=== PATIENT | female | born 1985 | race Caucasian/White ===

== ENCOUNTER 2023-10-02 08:21 | Outpatient (CLI) | payer BC, SELFPAY ==
[2023-10-16 12:24] VITALS: BMI 40.1
--- NOTE | 2023-10-16 12:24 | WPDHOMESLEEP ---
Sleep Study - Home Unattended Date of Study: 10/02/23 Ordering Provider: Abdiel Sutart DO Interpreting Provider: Elizabeth Tang, DO Home Sleep Study Type: Watch PAT Height: 1.6 m Weight: 102.965 kg Body Mass Index: 40.1 Neck Circumference (inches): 14.5 [place]: 7 Reason for Sleep Study Unrefreshing sleep Sleep History The patient is a 37-year-old female that had a sleep study ordered by her primary care physician for unrefreshing sleep.? The patient occasionally awakens from sleep short of breath.? She denies awakening at night with heartburn, belching or cough.? She constantly snores loudly enough that others complain.? She constantly has trouble sleeping when she has a cold.? She occasionally wakes up gasping for air throughout the night.? She occasionally has breathing problems at night observed by herself or others.? He denies sweating excessively at night.? She denies having heart palpitations or irregular heartbeats during the night.? She occasionally falls asleep during the day but never while driving.? She denies sleep paralysis and cataplexy.? She rarely has trouble at school or work due to sleepiness.? She rarely experiences vivid dreamlike scenes upon awakening or falling asleep.? She denies feeling afraid of going to sleep.? She rarely has nightmares.? She rarely remembers her dreams.? She rarely has thoughts racing through her mind.? She denies feeling sad or depressed.? She rarely has anxiety.? She denies having muscular tension.? She denies noticing parts of her body jerk.? She denies kicking during the night.? She denies having crawling and aching feelings in her legs and denies having leg pain during the night.? She rarely grinds her teeth during sleep but never awakens with morning jaw pain.? She denies being bothered by pain during the day and denies being awakened by pain during the night.? She rarely wakes up feeling stiff in the morning.? She occasionally wakes up with sore or achy muscles.? She occasionally wakes up with pain in the neck, spine and other joints.? She goes to bed at 10:30 p.m. on weekdays and at 10:00 p.m. on the weekends.? It takes her 15-30 minutes to fall asleep.? She wakes up a minimum of 2 times throughout the night for unknown reasons but she is able to fall back asleep immediately.? She wakes up at 6:00 a.m. on weekdays and at 7:00 a.m. on the weekends.? She typically gets 7 8 hours of sleep per night.? She will stay in bed for 30-60 minutes after waking up in morning.? She currently lives alone.? She denies consuming any caffeinated beverages within 2 hours of bedtime.? She denies engaging in physical exercise before bedtime.? She will read and watch television before falling asleep.? She denies taking naps in afternoon or the evening.? She consumes 1 caffeinated beverage per day.? She denies tobacco, alcohol and recreational drug use. [facility] Family History Family History Father Patient's father is Acute myocardial infarction Sibling Breast cancer Social History Social History Smoking status: Never smoker Second hand tobacco smoke exposure: No Alcohol intake: never Lack of Transportation: No Lack of Food: Never True Current Housing: I Have Housing Concerned About Future Housing: No Difficulty Paying Gas/Electric Bills: No Difficulty Paying for Meds: No Currently Unemployed: No Education: Bachelor's Degree Difficulty w/ Childcare or Family Care: No Medications Home Medications Medication Instructions Recorded Confirmed Type drospirenone (contraceptive) 4 mg 4 mg PO DAILY 02/08/21 09/12/23 History (28) tablet (Slynd) fluticasone propionate 50 2 spray intranasal DAILY PRN nasal 01/06/23 09/12/23 Rx mcg/actuation nasal congestion #15.8 mL spray,suspension montelukast 10 mg tablet 10 mg PO DAILY #90 tabs 07/03/23 05
== END 2023-10-03 08:59 | disposition home or self-care (01) ==
LOC: ANHCSM 08:22
PROVIDERS: PCP Internal Medicine; Visit Provider Internal Medicine
DX: G47.30 Sleep apnea, unspecified (principal); R06.83 Snoring; G47.33 Obstructive sleep apnea (adult) (pediatric)
CPT/HCPCS: 95800

== ENCOUNTER 2023-11-22 10:53 | Emergency (ER) | payer BC, SELFPAY ==
[2023-11-22 11:00] VITALS: BP 114/82; PULSE 66; RESP 16; TEMP 36.8; O2SAT 99
--- NOTE | 2023-11-22 11:07 | ED.SKABFB ---
HPI - Skin/Abscess/Foreign Bdy General Chief complaint: Skin/Abscess/Foreign Body Stated complaint: RASH Time Seen by Provider: 11/22/23 11:08 Source: patient and RN notes reviewed Mode of arrival: ambulatory Limitations: no limitations History of Present Illness HPI narrative: 37-year-old female presents with multiple complaints. She reports she was exposed to poison unique 11 days ago, she left for vacation 10 days ago and she began getting a rash while she was in [place]. She reports that worsened throughout her vacation and she developed blisters. Reports she has been using calamine lotion and has been putting dressings on the blisters. She denies oral mucosal involvement. She reports she has washed with soap water. She denies any swollen lips, swollen tongue. She also reports that her got COVID and she was exposed to that. Reports she has been having allergy symptoms, runny nose, stuffy nose, occasional cough and sore throat. She denies fever, body aches, chills, sweats. MD complaint: rash Related Data Home Medications Medication Instructions Recorded Confirmed drospirenone (contraceptive) 4 mg 4 mg PO DAILY 02/08/21 11/22/23 (28) tablet (Slynd) Allergies Allergy/AdvReac Type Severity Reaction Status Date / Time Penicillins Allergy Intermediate Hives Verified 11/22/23 11:08 Review of Systems Review of Systems: CONSTITUTIONAL: Denies malaise, chills, sweats, or fever. EYES: Denies redness, or discharge. ENT: Reports rhinorrhea, congestion. Denies swollen lips, swollen tongue CARDIOVASCULAR: Denies chest pain, palpitations, or edema. RESPIRATORY: Reports occasional cough. Denies dyspnea. GASTROINTESTINAL: Denies abdominal pain, nausea, vomiting SKIN: Reports rash with blisters on bilateral arms, legs MUSCULOSKELETAL: Denies joint pain or myalgia. NEUROLOGIC: Denies headache. All systems reviewed & are unremarkable except as noted in HPI and below PMFSH Family History Family History Father Patient's father is Acute myocardial infarction Sibling Breast cancer Social History Social History Smoking status: Never smoker Second hand tobacco smoke exposure: No Alcohol intake: never Lack of Transportation: No Lack of Food: Never True Current Housing: I Have Housing Concerned About Future Housing: No Difficulty Paying Gas/Electric Bills: No Difficulty Paying for Meds: No Currently Unemployed: No Education: Bachelor's Degree Difficulty w/ Childcare or Family Care: No Comments At time of signature, agree with nursing past medical, surgical, social and family history. There is no relevant family history pertinent to the presenting complaint Exam Narrative: GENERAL: Well-appearing, well-nourished, and in no acute distress. HEAD: Normocephalic, atraumatic. EYES: PERRLA, conjunctivae clear, and EOMI. ENT: Mucous membranes moist. Oropharynx without edema, erythema or lesions. NECK: Supple. No lymphadenopathy CHEST: Clear to auscultation. No respiratory distress. HEART: Regular rate and rhythm. SKIN: Warm, dry. Clusters of erythematous papules and vesicles, intact and disrupted blisters noted to the right arm NEURO: Alert and oriented x3. PSYCH: Normal mood and affect Course Course Emergency Course: Patient is aware of diagnosis, understands and agrees to treatment plan. Anticipatory guidance given. Patient agrees to follow-up as directed and is aware of reasons to seek care at the emergency department. Portions of this record may have been created with voice recognition software Level of Care: Express Care Visit Vital Signs Vital signs: Vital Signs Temperature 98.3 F 11/22/23 11:00 Pulse Rate 66 11/22/23 11:00 Respiratory Rate 16 11/22/23 11:00 Blood Pressure 114/82 11/22/23 11:00 Pulse Oximetry 99 11/21
[2023-11-22] MEDS: methylPREDNISolone SOD SUCC 125 MG VIAL IM (11:20)
== END 2023-11-22 11:30 | disposition home or self-care (01) ==
PROVIDERS: Emergency Provider Nurse Practitioner; PCP Internal Medicine
DX: L25.9 Unspecified contact dermatitis, unspecified cause (principal); S40.821A Blister (nonthermal) of right upper arm, initial encounter; X58.XXXA Exposure to other specified factors, initial encounter; Z20.822 Contact with and (suspected) exposure to COVID-19
CPT/HCPCS: 87426; 96372; 99213; G0463; J2919

== ENCOUNTER 2024-01-12 15:05 | Outpatient (CLI) | payer BC, SELFPAY ==
--- NOTE | ~2024-01-12 | MM_ITS ---
EXAMINATION: MM screening jc BI w theodore HISTORY: Screening mammogram, family history of breast cancer in her half-sister. TECHNIQUE: Craniocaudal and mediolateral oblique 3-D tomosynthesis images were obtained and synthetic 2-D images were generated. CAD analysis was submitted and interpreted. COMPARISON: No prior mammogram is available for comparison at this institution. BREAST PARENCHYMAL COMPOSITION:Dense: The breasts are heterogeneously dense, which may obscure small masses. FINDINGS: There is a 1.8 cm low-density, obscured mass at the inner, slightly lower subareolar left b reast. No parenchymal abnormality the right breast evident. No suspicious microcalcifications in eith er breast. IMPRESSION: 1.8 cm obscured mass at the inner, slightly lower subareolar left breast. Spot compression views and ultrasound are recommended for further evaluation. BI-RADS Category 0: Incomplete: Needs additional imaging evaluation. Reviewed, dictated and finalized at [facility].
== END 2024-01-12 15:06 | disposition home or self-care (01) ==
LOC: ANHIMG 15:07
PROVIDERS: PCP Internal Medicine; Visit Provider Internal Medicine
DX: Z12.31 Encounter for screening mammogram for malignant neoplasm of breast (principal); R92.8 Other abnormal and inconclusive findings on diagnostic imaging of breast
CPT/HCPCS: 77063; 77067

== ENCOUNTER 2024-01-29 10:46 | Outpatient (CLI) | payer BC, SELFPAY ==
--- NOTE | ~2024-01-29 | MMUS_ITS ---
EXAMINATION: MM diagnostic jc LT w theodore, US breast LT limited HISTORY: Left breast mass seen on prior examination. TECHNIQUE: Additional 3-D tomosynthesis images of the left breast were performed and synthetic 2-D im ages were generated. CAD analysis was submitted and interpreted. High resolution Limited left breast ultrasound was performed. COMPARISON: 01/12/2024 BREAST PARENCHYMAL COMPOSITION: Dense: The breasts are heterogeneously dense, which may obscure small masses FINDINGS: MAMMOGRAPHIC FINDINGS: There is a subareolar mass of the left breast which is obscured by overlying fibroglandular tissue. T here are 2 cyst associated coarse calcifications. Mass measures approximately 2.3 cm on mammography. ULTRASOUND: Limited left breast ultrasound: At 12:00, 4 cm from the nipple there is an oval parallel oriented hyp oechoic mass without significant posterior features or internal vascularity measuring 1.6 x 1.2 x 0.5 cm. At 12:00, 1 cm from the nipple there is an oval slightly irregular shaped hypoechoic mass with m ixed posterior attenuation and no internal vascularity measuring 1.8 x 1.8 x 1.2 cm. Near the nipple at 2:00 there is a 7 mm oval hypoechoic mass with slightly irregular margins measuring 7 x 6 x 3 mm. IMPRESSION: 1. Multiple abnormal left breast masses, largest dominant mass at 12:00, 1 cm from the nipple measuri ng 1.8 cm, corresponding to the mammographic finding. 2. Recommend ultrasound-guided biopsy of dominant mass measuring 1.8 cm. BI-RADS category 4, suspicious findings. Reviewed, dictated and finalized at location [facility]. IMPRESSION: 1. Multiple abnormal left breast masses, largest dominant mass at 12:00, 1 cm f rom the nipple measuring 1.8 cm, corresponding to the mammographic finding. 2. Recommend ultrasound-guided biopsy of dominant mass measuring 1.8 cm. BI-RADS category 4, suspicious findings.
== END 2024-01-29 10:47 | disposition home or self-care (01) ==
PROVIDERS: PCP Internal Medicine; Visit Provider Internal Medicine
DX: N63.42 Unspecified lump in left breast, subareolar (principal); R92.8 Other abnormal and inconclusive findings on diagnostic imaging of breast
CPT/HCPCS: 76642; 77061; 77065; G0279

== ENCOUNTER 2024-02-28 07:49 | Outpatient (CLI) | payer BC, SELFPAY ==
--- NOTE | ~2024-02-28 | MMUS_ITS ---
EXAMINATION: 1. US breast biopsy LT w image 2. MM post biopsy diagnostic LT DATE: 02/28/2024 09:17 INDICATION: Left breast mass at 12:00. TECHNIQUE: The procedure including the risks, benefits, and alternatives was discussed with the patie nt. Risks discussed included bleeding and infection. The patient understood the risks and agreed to p roceed. The skin of the left breast was prepped and draped in usual sterile fashion. Anesthetic was administered with 1% lidocaine at the skin and 1% lidocaine with epinephrine in the deeper tissue. A 10-gauge vacuum-assisted core biopsy needle was then used to obtain 3 core biopsy specimens under co ntinuous sonographic guidance. A Mammotome Hydromark butterfly marker was placed under sonographic gu idance The entry site was cleaned and dressed. There were no immediate complications. A two-view mammogram was obtained to document marker placement. FINDINGS: Ultrasound images demonstrate the needle in a 1.7 cm oval, parallel, macrolobulated, hypoec hoic mass with no posterior features at the 12:00 position. The marker is placed within the mass. Breast composition: The breasts are heterogeneously dense, which may obscure small masses. Left breast mammogram: The mass is obscured on the mammogram. There is a tissue marker in the subareo lar breast. IMPRESSION: 1. Successful ultrasound-guided vacuum-assisted biopsy of a left breast mass with post procedure mamm ogram for marker placement. Reviewed, dictated and finalized at location [facility]. IMPRESSION: 1. Successful ultrasound-guided vacuum-assisted biopsy of a left breast mass wi th post procedure mammogram for marker placement.
== END 2024-02-28 07:50 | disposition home or self-care (01) ==
PROVIDERS: PCP Internal Medicine; Visit Provider Internal Medicine
DX: R92.8 Other abnormal and inconclusive findings on diagnostic imaging of breast (principal)
CPT/HCPCS: 19083; 77065; 88305; A4648